=== PATIENT | female | born 1940 | race Caucasian/White ===

== ENCOUNTER 2019-01-11 09:54 | Emergency (ER) ==
[2019-01-11 10:08] VITALS: BP 155/58; TEMP 96.7; BMI 22.5
[2019-01-11] MEDS ORDERED: ZOFRAN 4 MG/2 ML IVP STA (10:15)
[2019-01-11] MEDS ORDERED: SODIUM CHLORIDE 1,000 ML IV STA ×3 (10:15→11:14)
[2019-01-11] MEDS ORDERED: ANTIVERT PO STA (10:17)
--- NOTE | 2019-01-11 11:08 | CT ---
EXAM: CT Head HISTORY: Dizzy COMPARISON: None TECHNIQUE: CT head performed without contrast FINDINGS: There is no mass effect, midline shift, or intracranial hemmorhage. Paige white differenti ation is preserved. There is no extra-axial collection. The ventricles, sulci, and basal cisterns a re patent and symmetric. There is mild chronic ischemic disease of the white matter and cerebral vol ume loss. There is no depressed calvarial fracture. The mastoid air cells are clear. The visualized paranasal sinuses are clear. There are intracranial atherosclerotic calcifications. IMPRESSION: 1. No acute intracranial abnormality. 2. Mild chronic ischemic disease of the white matter and cerebral volume loss.
--- NOTE | 2019-01-11 12:28 | CT ---
EXAM: CT abdomen pelvis with contrast HISTORY: Vomiting, elevated amylase COMPARISON: None TECHNIQUE: CT abdomen pelvis performed with intravenous contrast. Coronal and sagittal reformatted images obtained. FINDINGS: Basilar atelectasis and/or scarring. No free air. No acute abnormalities of the bones. Degenerative change in the spine. Leftward curvature lower thoracic and lumbar spine. Minimal loss of height superior endplate L3 with chronic features suggested. Heart mildly enlarged. Liver cysts and additional sub centimeter hypodensities in the liver, too small to characterize. Mild nonspecifi c periportal edema. Gallbladder unremarkable. Pancreas unremarkable. Spleen unremarkable. Adrenal s unremarkable. Kidneys unremarkable. Aorta tortuous in the lower thoracic region. Aorta normal in caliber. Mild to moderate atherosclerosis. Bladder unremarkable. Uterus either small or absent. No lymphadenopathy or ascites. Small hiatal hernia. No dilated loops small bowel. Appendix not vis ualized. Portions of the colon decompressed and poorly evaluated. Nonspecific mesenteric edema. IMPRESSION: 1. No bowel or urinary obstruction. 2. Nonspecific periportal edema, could relate to fluid status/fluid resuscitation. 3. Nonspecific mesenteric edema 4. Cardiomegaly. 5. Atherosclerosis.
--- NOTE | 2019-01-11 12:48 | ED.PDOC ---
General ED Provider: Dr. ILAN AMADOR Chief Complaint: Nausea/Vomiting Stated Complaint: dizziness postional Time Seen by Physician: 10:00 (postional vertigo associated with nausea, vomiting) Mode of Arrival: Walk-In Information Source: Patient Exam Limitations: No limitations Nursing and Triage Documentation Reviewed and Agree: Yes Does patient meet sepsis criteria?: No System Inflammatory Response Syndrome: Not Applicable Sepsis Protocol: For patient's 13 years and over: Temp is 96.8 and below OR 101 and greater Pulse >90 BPM Resp >20/minute Acutely Altered Mental Status Are patient's symptoms suggestive of a new infection, such as: -Pneumonia -Skin, Soft Tissue -Endocarditis -UTI -Bone, Joint Infection -Implantable Device -Acute Abdominal Infection -Wound Infection -Meningitis -Blood Stream Catheter Infection -Unknown Review of Systems - Review Of Systems Constitutional: Reports: No symptoms Eyes: Reports: No symptoms Ears, Nose, Mouth, Throat: Reports: No symptoms Respiratory: Reports: No symptoms Cardiac: Reports: No symptoms GI: Reports: No symptoms : Reports: No symptoms Musculoskeletal: Reports: No symptoms Skin: Reports: No symptoms Neurological: Reports: Other (dizziness w/o motor sensory issues ) Endocrine: Reports: No symptoms Hematologic/Lymphatic: Reports: No symptoms All Other Systems: Reviewed and Negative Past Medical History - Past Medical History Previously Healthy: Yes Endocrine: Reports: None Cardiovascular: Reports: None Respiratory: Reports: None Hematological: Reports: None Gastrointestinal: Reports: None Genitourinary: Reports: None Neuro/Psych: Reports: None Musculoskeletal: Reports: None Cancer: Reports: None Last Menstrual Period: N/A - Surgical History General Surgical History: Reports: None - Family History Family History: Reports: None - Social History Smoking Status: Former smoker Hx Substance Use: No Alcohol Screening: None - Immunizations Tetanus Shot up to Date: No Physical Exam - Physical Exam Appearance: Well-appearing, No pain distress, Well-nourished Eyes: MIA, EOMI, Conjunctiva clear ENT: Ears normal, Nose normal, Oropharynx normal Respiratory: Airway patent, Breath sounds clear, Breath sounds equal, Respirations nonlabored Cardiovascular: RRR, Pulses normal, No rub, No murmur GI/: Soft, Nontender, No masses, Bowel sounds normal, No Organomegaly Musculoskeletal: Normal strength, ROM intact, No edema, No calf tenderness Skin: Warm, Dry, Normal color Neurological: Sensation intact, Motor intact, Reflexes intact, Cranial nerves intact, Alert, Oriented Psychiatric: Affect appropriate, Mood appropriate - NIH Stroke Scale 1a. Level of Consciousness: 0=Alert and keenly responsive 1b. Level of Consciousness Questions: 0=Answers correctly to two questions 1c. Level of Consciousness Commands: 0=Performs two tasks correctly 2. Best Gaze: 0=Normal 3. Visual: 0=No visual loss 4. Facial Palsy: 0=Normal 5a. Motor Left Arm: 0=No drift,arm holds 90 degrees for 10 sec., leg 30 degrees for 5 sec. 5b. Motor Right Arm: 0=No drift,arm holds 90 degrees for 10 sec., leg 30 degrees for 5 sec. 6a. Motor Left Le=No drift,arm holds 90 degrees for 10 sec., leg 30 degrees for 5 sec. 6b. Motor Right Le=No drift,arm holds 90 degrees for 10 sec., leg 30 degrees for 5 sec. 7. Limb Ataxia: 0=Absent 8. Sensory: 0=Normal 9. Best Language: 0=No aphasia 10. Dysarthria: 0=Normal 11. Extincion and Inattention: 0=Normal Stroke Scale Total: 0 Interpretation - Radiology Interpretation Radiology Interpretation By: Radiologist Radiology Results: No acute changes Exam Interpreted: CT Scan Re-Evaluation - Re-Evaluation Time of Re-Evaluation: 11:00 Status: Improved Vital Signs Stable: Yes Pain Level: 0 Appearance: NAD Lungs: Clear Skin: Warm and Dry Neuro: Alert and Oriented X3 CV: RRR - Re-Evaluation Time of Re-Evaluation: 12:49 Status: Improved Vital Signs Stable: Yes Pain Level: 0 Appearance: NAD Skin: Warm and Dry Neuro: Alert and Oriented X3 CV: RRR Critical Care Note - Critical Care Note Total Time (mins): 0 Course - Course Hematology/Chemistry: 01/11/19 10:10 01/11/19 10:10 Orders, Labs, Meds: Lab Review 01/11/19 01/11/19 01/11/19 10:10 10:10 10:10 WBC 9.25 RBC 4.23 Hgb 11.9 L Hct 36.1 L MCV 85.3 MCH 28.1 MCHC 33.0 RDW Coeff of Dolores 18.6 H Plt Count 279 Immature Gran % (Auto) 0.6 Neut % (Auto) 43.4 Lymph % (Auto) 40.0 Pershing % (Auto) 12.0 H Eos % (Auto) 3.4 Baso % (Auto) 0.6 Immature Gran # (Auto) 0.1 Neut # (Auto) 4.0 Lymph # (Auto) 3.7 H Pershing # (Auto) 1.1 Eos # (Auto) 0.3 Baso # (Auto) 0.1 Sodium 137.4 Potassium 3.68 Chloride 101.8 Carbon Dioxide 26.2 Anion Gap 13.08 BUN 21.9 H Creatinine 0.85 Estimated GFR (MDRD) 65.00 BUN/Creatinine Ratio 25.76 Glucose 98.6 Lactic Acid Calcium 9.78 Total Bilirubin 0.53 AST 42.2 H ALT 21.3 Alkaline Phosphatase 77.2 Total Creatine Kinase 142.7 H CK-MB (CK-2) 3.190 H CK-MB (CK-2) % 2.2300 Troponin I < 0.012 Total Protein 6.79 Albumin 4.41 Globulin 2.38 Albumin/Globulin Ratio 1.85 Amylase 138.2 H Lipase 113.9 Procalcitonin < 0.05 Digoxin 01/11/19 01/11/19 10:10 10:10 WBC RBC Hgb Hct MCV MCH MCHC RDW Coeff of Dolores Plt Count Immature Gran % (Auto) Neut % (Auto) Lymph % (Auto) Pershing % (Auto) Eos % (Auto) Baso % (Auto) Immature Gran # (Auto) Neut # (Auto) Lymph # (Auto) Pershing # (Auto) Eos # (Auto) Baso # (Auto) Sodium Potassium Chloride Carbon Dioxide Anion Gap BUN Creatinine Estimated GFR (MDRD) BUN/Creatinine Ratio Glucose Lactic Acid 1.46 Calcium Total Bilirubin AST ALT Alkaline Phosphatase Total Creatine Kinase CK-MB (CK-2) CK-MB (CK-2) % Troponin I Total Protein Albumin Globulin Albumin/Globulin Ratio Amylase Lipase Procalcitonin Digoxin < 0.40 L Orders Category Date Time Status EKG-(ED ONLY) Stat CARDIO 01/11/19 10:12 Completed EKG-(ED ONLY) Stat CARDIO 01/11/19 10:55 Completed NPO REMINDER: IMAGING ONCE CARE 01/11/19 11:14 Ordered ED IV/MEDIPORT/POWERPORT .ONCE EMERGENCY 01/11/19 10:12 Active AMYLASE Stat LAB 01/11/19 10:10 Completed BLOOD CULTURE Stat LAB 01/11/19 10:10 Received CBC W/ AUTO DIFF Stat LAB 01/11/19 10:10 Completed COMPREHENSIVE METABOLIC PANEL Stat LAB 01/11/19 10:10 Completed CREATINE KINASE Stat LAB 01/11/19 10:10 Completed DIGOXIN Stat LAB 01/11/19 10:55 Ordered LACTIC ACID Stat LAB 01/11/19 10:10 Completed LIPASE Stat LAB 01/11/19 10:10 Completed PROCALCITONIN Stat LAB 01/11/19 10:10 Received TROPONIN I Stat LAB 01/11/19 10:10 Completed URINALYSIS C & S IF INDICATED Stat LAB 01/11/19 10:12 Uncollected 0.9 % Sodium Chloride [Saline Flush] MEDS 01/11/19 10:12 Active 1 syr IVF PRN PRN Meclizine HCl [Antivert] MEDS 01/11/19 10:17 Discontinued 25 mg PO ONCE STA Ondansetron HCl/Pf [Zofran 4 mg/2 ml] MEDS 01/11/19 10:15 Discontinued 4 mg IVP ONCE STA SODIUM CHLORIDE 0.9% @ 125 MLS/HR(1,000ml) MEDS 01/11/19 11:14 Ordered Sodium Chloride 0.9% [Sodium Chloride] 1,000 ml IV 125 mls/hr Sodium Chloride 0.9% [Sodium Chloride] 1,000 ml MEDS 01/11/19 10:[address] ABDOMEN/PELVIS W CONTRAST Stat RADS 01/11/19 11:[address] HEAD W/O CONTRAST Stat RADS 01/11/19 10:14 Completed Medications Generic Name Dose Route Start Last Admin Trade Name Freq PRN Reason Stop Dose Admin Sodium Chloride 1,000 mls @ 125 mls/hr 01/11/19 11:14 01/11/19 11:19 Sodium Chloride IV 01/11/19 19:13 125 mls/hr .Q8H STA Administration Sodium Chloride 1 syr 01/11/19 10:12 01/11/19 10:21 Saline Flush IVF 1 syr PRN PRN Administration To flush IV Discontinued Medications Generic Name Dose Route Start Last Admin Trade Name Freq PRN Reason Stop Dose Admin Sodium Chloride 1,000 mls @ 1,000 mls/hr 01/11/19 10:15 01/11/19 10:20 Sodium Chloride IV 01/11/19 11:14 1,000 mls/hr BOLUS STA Administration Meclizine HCl 25 mg 01/11/19 10:17 Antivert PO 01/11/19 10:18 ONCE STA Ondansetron HCl 4 mg 01/11/19 10:15 01/11/19 10:21 Zofran 4 Mg/2 Ml IVP 01/11/19 10:16 4 mg ONCE STA Administration Vital Signs: Temp Pulse Resp BP Pulse Ox 01/11/19 09:55 96.7 F L 66 22 155/58 H 99 Departure - Departure Time of Disposition: 14:00 Disposition: HOME SELF-CARE Discharge Problem: Nausea, Vomiting Instructions: Vertigo (ED), Benign Paroxysmal Positional Vertigo (ED), Dizziness (ED) Condition: Good Pt referred to PMD for follow-up: Yes IPMP verified?: No Allergies/Adverse Reactions: Allergies Penicillins Allergy (Mild, Unverified 01/11/19 10:02) Itching was a long time ago Home Medications: Ambulatory Orders Aspirin [Aspir-Low] 81 mg PO DAILY 01/11/19
--- NOTE | 2019-01-11 14:08 | CT ---
EXAM: CTA of the soft tissue neck with and without contrast History: Dizziness. Comparison: CTA of the head 01/11/2019 Technique: Multiplanar CT images through the soft tissue neck were obtained with and without the adm inistration of IV contrast. MIP images and 3-D reconstructions were also acquired. Findings: Visualized upper lungs are clear. No acute osseous abnormalities. Paranasal sinuses and mastoid air cells are clear in general. Degenerative changes of the cervical spine. Epiglottis is n ot thickened. No inflammation of the parotid or submandibular glands. 0.6 cm left thyroid nodule. No pathologically enlarged lymph nodes. The bilateral subclavian arteries are patent without significant disease. The bilateral common carot id arteries are patent without significant disease. The bilateral internal carotid arteries are grey nt without significant disease. No aneurysms are seen. The bilateral vertebral arteries are patent without significant disease. No arterial dissections identified. Impression: Normal arterial study of the neck.
--- NOTE | 2019-01-11 14:16 | CT ---
EXAM: CT angiogram of the head with contrast HISTORY: dizzy TECHNIQUE: Helical imaging of the head was performed following the intravenous administration of con trast. 1 mm thin axial images and coronal and sagittal reconstructions and rotated 3-D reconstructio ns were provided for interpretation. Comparison 01/11/2019 CT scan of the head. FINDINGS: There is normal delineation of the cavernous carotid artery and supraclinoid ICA. The M1 segments of the middle cerebral arteries appear to be normal caliber. There is a normal appearance o f the distal branches of the middle cerebral arteries. The A1 segments are seen and appear to be nor mal caliber. The A2 segments and anterior communicating artery appear normal. There is a normal hazel earance of the distal branches of the anterior cerebral arteries. The left vertebral artery is dominant. The vertebral basilar junction appear to be normal caliber. The basilar artery and tip of the basilar artery appear to be normal. There is a normal appearance o f the posterior cerebral arteries. The posterior communicating arteries are seen bilaterally. IMPRESSION: There is no intra cranial stenosis or signs of acute vascular occlusion. There is no aneurysm or vascular malformation.
== END 2019-01-11 14:37 | disposition home or self-care (01) ==
LOC: ED 09:54
DX: H81.10 Benign paroxysmal vertigo, unspecified ear (principal); R11.2 Nausea with vomiting, unspecified
CPT/HCPCS: 36415; 80053; 80162; 82150; 82550; 82553; 83605; 83690; 84145; 84484; 85025; 87040; 93005; 93010; 96360; 96361; 96374; 96375; 99284

== ENCOUNTER 2019-02-06 08:28 | Outpatient (POV) | END 2019-02-06 17:00 | LOC: OUTPT 08:28 | PROVIDERS: ATTEND Otolaryngology | DX: H90.5 Unspecified sensorineural hearing loss (principal) | CPT/HCPCS: 92557; 92567 ==